=== PATIENT | female | born 1955 | race Two or more races ===

== ENCOUNTER 2024-01-07 10:35 | Outpatient (AMB) | payer MEDICARE, SELFPAY ==
--- NOTE | 2024-01-07 10:40 | A.OFFVIS_ITS ---
Vital Signs 01/07/24 10:44 Weight 199 lb BP 163/74 H Blood Pressure Location Rt brachial Position Sitting Pulse 93 Intake Visit Reasons: Acute cholecystitis Intake Note: Patient referred by pcp Dr. Calle for acute cholecystitis. Patient c/o: pain episode in November. Went to [facility]. Patient referred by pcp Dr. Calle for acute cholecystitis. 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 She was evaluated [facility] full workup which demonstrated findings including CT scan and ultrasound. Patient was discharged home on antibiotics. She presents here for further evaluation. Patient has never been jaundiced before. She otherwise has regular bowel habits. No other GI issues or complaints. Chart was reviewed and patient evaluated along with radiographic studies from [facility] Medical History (Updated 01/07/24 @ 10:42 by AMADO Ospina) Tubal ligation evaluation HTN (hypertension) Surgical History (Updated 01/07/24 @ 11:14 by Juan Pablo Venegas MD) History of tonsillectomy Social History (Updated 01/07/24 @ 10:50 by AMADO Ospina) Patient Tobacco Use Status: Never used Tobacco Physical Exam Vital Signs: Last Vital Signs Pulse 93 01/07/24 10:44 BP 163/74 H 01/07/24 10:44 Eyes Other: Anicteric Chest Other: Chest breath sounds bilaterally, HS 1 in 2 GI Other: Abdomen corpulent, soft, benign Assessment & Plan Assessment & Plan (1) [place] teeth extracted: Code(s): K08.409 - Partial loss of teeth, unspecified cause, unspecified class Plan: Risks, benefits, alternatives laparoscopic possible open cholecystectomy reviewed with the patient and included but not limited to bleeding, infection, recurrence of symptoms, numbness, pain, scarring, bowel or bile duct injury or leak and the patient wishes to proceed. All questions answered. Arrangements were made for this. (2) Cholecystitis: Code(s): K81.9 - Cholecystitis, unspecified Category: Surgical Plan: See above Coding Level of Care Code New Pt Level 5 (55283) Diagnoses [place] teeth extracted K08.409 Cholecystitis K81.9
[2024-01-07 10:44] VITALS: BP 163/74; PULSE 93
== END 2024-01-07 10:57 | disposition home or self-care (01) ==
PROVIDERS: PCP Pediatrics; Referring Provider Pediatrics; Visit Provider Surgery
DX: K81.9 Cholecystitis, unspecified (principal)
CPT/HCPCS: 99204

== ENCOUNTER → 2024-01-07 10:35 | Outpatient (BNVA) | payer MEDICARE, SELFPAY | PROVIDERS: PCP Pediatrics; Referring Provider Pediatrics; Visit Provider Surgery | DX: K81.9 Cholecystitis, unspecified (principal); K08.409 Partial loss of teeth, unspecified cause, unspecified class | CPT/HCPCS: 99202 ==

== ENCOUNTER 2024-01-16 06:59 | Day surgery (SDC) | payer MEDICARE, SELFPAY ==
--- NOTE | 2024-01-15 09:29 | HO.ANESPROP2 ---
Documented by User: Lavonne Garcia NP 01/15/24 09:33 HPI - Anesthesia Eval Consult details Narrative: 68yo F for Cholecystectomy Laparoscopic,possible open PMFSH Active Problems Active Problems: All Active Problems Cholecystitis (Acute) Past Medical History Medical History (Updated 01/07/24 @ 10:42 by AMADO Ospina) Tubal ligation evaluation HTN (hypertension) Surgical History Surgical History (Updated 01/07/24 @ 11:14 by Juan Pablo Venegas MD) History of tonsillectomy Social History Social History (Updated 01/07/24 @ 10:50 by AMADO Ospina) Patient Tobacco Use Status: Never used Tobacco Use of substances other than those prescribed or required for medical reasons: No Are you DNR?: No Advance Directives: No Advance Directives Information Provided: Yes Meds Allergies Allergy/AdvReac Type Severity Reaction Status Date / Time No Known Allergies Allergy Verified 01/16/24 07:21 Home Medications ?Medication ?Instructions ?Recorded ?Confirmed ?Last Taken ?Type atorvastatin 20 mg tablet 20 mg PO DAILY 01/07/24 01/16/24 Unknown History hydrochlorothiazide 12.5 mg capsule 12.5 mg PO DAILY 01/07/24 01/16/24 Unknown History valsartan 160 mg tablet 160 mg PO BID 01/07/24 01/16/24 Unknown History dorzolamide 22.3 mg-timolol 6.8 1 drp ophthalmic (eye) BID 01/16/24 01/16/24 Unknown History mg/mL eye drops Exam Pertinent Lab Results Pertinent Lab Results: CBC and BMP 12/17/23 from outside facility WNL Assessment and Plan Assessment Anesthesia Assessment: Chart Reviewed Documented by User: Darlene Alarcon MD 01/16/24 09:47 PMFSH Past Medical History Medical History (Updated 01/07/24 @ 10:42 by AMADO Ospina) Tubal ligation evaluation HTN (hypertension) Family History Family history of problems with anesthesia: No Surgical History Surgical History (Updated 01/07/24 @ 11:14 by Juan Pablo Venegas MD) History of tonsillectomy History of Problems with Anesthesia: No Social History Social History (Updated 01/07/24 @ 10:50 by AMADO Ospina) Patient Tobacco Use Status: Never used Tobacco Use of substances other than those prescribed or required for medical reasons: No Are you DNR?: No Advance Directives: No Advance Directives Information Provided: Yes Meds Allergies Allergy/AdvReac Type Severity Reaction Status Date / Time No Known Allergies Allergy Verified 01/16/24 07:21 Home Medications ?Medication ?Instructions ?Recorded ?Confirmed ?Last Taken ?Type atorvastatin 20 mg tablet 20 mg PO DAILY 01/07/24 01/16/24 Unknown History hydrochlorothiazide 12.5 mg capsule 12.5 mg PO DAILY 01/07/24 01/16/24 Unknown History valsartan 160 mg tablet 160 mg PO BID 01/07/24 01/16/24 Unknown History dorzolamide 22.3 mg-timolol 6.8 1 drp ophthalmic (eye) BID 01/16/24 01/16/24 Unknown History mg/mL eye drops Exam Airway Mallampati Class: II TM Dist: >3cm Neck ROM: Full Assessment and Plan Assessment Anesthesia Assessment: Anesthesia Plan Discussed Final Anesthetic Review Family History of Problems with Anesthesia: No History of Problems with Anesthesia: No NPO: Yes ASA Class: II Final Preanesthetic Review: No Changes in Pt Med Stat, Meds/Allgs Chart Reviewed, Consent Obtained/Reviewed and Anes Risks/Benef Reviewed Patient Risk: Low Procedure Risk: Intermediate Anesthetic Plan Anesthetic Plan: GA Disposition: Standard PACU
--- NOTE | 2024-01-15 09:40 | MHC.SHP ---
Pre-Procedural Eval Section A - 24 Hr Update-Section A only Date of Service: 01/16/24 The patient is an INPATIENT: No Changes since office visit: No Cold of Flu in the past 2 weeks, No New Medical Problems, No Changes in Medication and No Patient answered all questions Section B - Complete if H&P > 30 days Chief Complaint: Cholecystitis, unspecified Allergies: Allergies Allergy/AdvReac Type Severity Reaction Status Date / Time No Known Allergies Allergy Verified 01/07/24 10:41 Plan I have reviewed the history and physical and performed a pertinent physical examination on my patient. No changes have occurred unless specified. Time Spent With Patient Time: Total time managing care of this patient today ____ minutes.
[2024-01-16] VITALS (14 sets, daily range): BP systolic 138–158; BP diastolic 68–88; PULSE 64–77; RESP 15–19; TEMP 36.1–36.2; O2SAT 96–100; BMI 36.8
[2024-01-16] MEDS: Lactated Ringers 1,000 ML 100 ML IVCONT (07:48)
--- NOTE | 2024-01-16 09:46 | W.PM.OPN ---
Operative Note Operative Note Date of Service: 01/16/24 Narrative: Preoperative diagnosis: [] Symptomatic gallbladder Postop diagnosis: [] The same Procedure [] laparoscopic cholecystectomy Surgeon: [] Theo Project Management It Specialist: [] Aura Type of Anesthesia: [] General Indication for surgery: [] Gallbladder with omental adhesions to it. Moderately intrahepatic gallbladder. Corpulent abdomen Findings: [] Patient brought to the operating room, placed on operative table supine position, after an adequate level of general anesthesia was induced, the patient's abdomen was prepped and draped in usual sterile fashion. Using an infraumbilical curvilinear incision, through a prior scar, Schmidt technique was used to insufflate abdominal cavity to 15 mm of CO2. Upper midline and right subcostal ports were placed under direct laparoscopic view, and the patient placed in reverse Trendelenburg position, and tilted to the left. Findings were as noted above. Gallbladder was grasped using laparoscopic graspers and retracted superiorly and laterally. Soft omental adhesions were swept off the gallbladder with the hilum was approached. Cystic artery and cystic duct were each identified, circumferentially skeletonized, traced directly into the gallbladder, and critical view obtained. Each was clipped proximally x2, distally x1, and transected gallbladder which was moderately intrahepatic was then cauterized from the gallbladder fossa using Bovie. Specimen placed in an Endo-Catch bag, a retrieved through the umbilical port. Abdominal cavity was copiously irrigated and secured hemostasis. All ports removed under direct laparoscopic view. Wounds were closed in the following manner; umbilical wound is fascia reapproximated using interrupted 0 Vicryl sutures. Skin wounds were closed using subcuticular 4-0 Vicryl sutures followed by Steri-Strips and sterile dressings. Wounds were infiltrated 0.5% Marcaine at completion. Sponge, needle, and instrument counts reported correct. Patient tolerated the procedure well and emerged from anesthesia stable condition. EBL minimal
[2024-01-16] MEDS: fentaNYL citrate/PF 100 MCG/2 ML VIAL 50 MCG IVPUSH (10:40)
== END 2024-01-16 13:35 | disposition home or self-care (01) ==
PROVIDERS: PCP Student in an Organized Health Care Education/Training Program; Visit Provider Surgery
PROC: 0FT44ZZ Resection of Gallbladder, Percutaneous Endoscopic Approach (ICD-10-PCS; CPT 47562; principal; 2024-01-16 09:10)
DX: K80.10 Calculus of gallbladder with chronic cholecystitis without obstruction (principal); K82.8 Other specified diseases of gallbladder; E65 Localized adiposity; Q44.1 Other congenital malformations of gallbladder; I10 Essential (primary) hypertension; Z79.899 Other long term (current) drug therapy; Z98.51 Tubal ligation status
CPT/HCPCS: 47562; 88304; J0690; J1100; J2250; J2405; J2704; J2795; J3010

== ENCOUNTER → 2024-01-16 06:59 | Outpatient (BNV) | payer MEDICARE, SELFPAY | PROVIDERS: PCP Student in an Organized Health Care Education/Training Program; Visit Provider Surgery | DX: K81.9 Cholecystitis, unspecified (principal) | CPT/HCPCS: 47562 ==

== ENCOUNTER 2024-01-27 11:27 | Outpatient (AMB) | payer MEDICARE, SELFPAY ==
--- NOTE | 2024-01-27 11:34 | MHC.OFFVIS ---
Intake Visit Reasons: S/P lap jose Intake Note: Patient is seen in office for post op assessment post laparoscopic cholecystectomy. Pt c/o: reports incision healing well. Taking tylenol as needed. Op: 01/16/24 Salt Washer Required: No Accompanied by: Self / Same As Patient Allergies No Known Allergies Allergy (Verified 01/27/24 11:35) HPI Comments Details: Patient presents for follow-up. She has been able to tolerate her diet. She is having regular bowel habits. She has been increasing her activity level. Patient has minimal incisional discomfort. [facility] Medical History Tubal ligation evaluation HTN (hypertension) Surgical History Hx laparoscopic cholecystectomy (01/16/24) History of tonsillectomy Social History Patient Tobacco Use Status: Never used Tobacco Physical Exam Eyes Other: Anicteric GI Other: Abdomen is soft benign. All wounds clean dry and intact Assessment & Plan Assessment & Plan (1) Status post laparoscopic cholecystectomy: Code(s): Z90.49 - Acquired absence of other specified parts of digestive tract Category: Medical Plan Patient was given local instructions, and will otherwise follow-up p.r.n.. All questions answered Coding Level of Care Code Global (98292) Diagnoses Status post laparoscopic cholecystectomy Z90.49
== END 2024-01-27 11:46 | disposition home or self-care (01) ==
PROVIDERS: PCP Pediatrics; Visit Provider Surgery
DX: Z90.49 Acquired absence of other specified parts of digestive tract (principal)
CPT/HCPCS: 99024

== ENCOUNTER → 2024-01-27 11:27 | Outpatient (BNVA) | payer MEDICARE, SELFPAY | PROVIDERS: PCP Pediatrics; Visit Provider Surgery | DX: Z09 Encounter for follow-up examination after completed treatment for conditions other than malignant neoplasm (principal); Z90.49 Acquired absence of other specified parts of digestive tract | CPT/HCPCS: 99212 ==